=== PATIENT | female | born 1970 | race Caucasian/White ===

== ENCOUNTER → 2023-06-08 08:38 | Outpatient (CLI) | payer BC, SELFPAY ==
--- NOTE | ~2023-06-08 | US_ITS ---
EXAMINATION: US soft tissue head and neck DATE: 06/08/2023 08:51 INDICATION: Lump in neck. TECHNIQUE: Multiple grayscale and Doppler ultrasound images of the head and neck were obtained. COMPARISON: None FINDINGS: In the right subclavicular region, there is a 2.8 x 2.6 x 2.3 cm mass with similar echotext ure and echogenicity to normal subcutaneous fat, consistent with a lipoma. IMPRESSION: 1. 2.8 cm lipoma in right supraclavicular region. Reviewed, dictated and finalized at location A. P [facility]
== END ==
PROVIDERS: PCP Internal Medicine; Visit Provider Internal Medicine
DX: R22.1 Localized swelling, mass and lump, neck (principal); D17.0 Benign lipomatous neoplasm of skin and subcutaneous tissue of head, face and neck
CPT/HCPCS: 76536